=== PATIENT | male | born 1990 | race Caucasian/White ===

== ENCOUNTER 2017-05-16 23:20 | Emergency (ER) | payer OTHER ==
[2017-05-17 02:07] VITALS: BP 135/76
== END 2017-05-17 02:07 | disposition home or self-care (01) ==
LOC: ED 23:20
DX: S06.0X9A Concussion with loss of consciousness of unspecified duration, initial encounter (principal); W18.09XA Striking against other object with subsequent fall, initial encounter; Y93.89 Activity, other specified; Y99.8 Other external cause status; Y92.89 Other specified places as the place of occurrence of the external cause